=== PATIENT | female | born 2000 | race Caucasian/White ===

== ENCOUNTER 2022-07-08 17:46 | Emergency (ER) | payer BC ==
--- NOTE | 2022-07-08 17:56 | NUR ---
CALLED TO TRIAGE,NO ANSWER
--- NOTE | 2022-07-08 17:57 | NUR ---
PATIENT LEFT PER ADMITTING
== END 2022-07-08 17:59 | disposition left against medical advice (07) ==
LOC: ER 17:46
DX: Z53.21 Procedure and treatment not carried out due to patient leaving prior to being seen by health care provider (principal)